=== PATIENT | female | born 1985 | race Caucasian/White ===

== ENCOUNTER 2022-03-13 15:58 | Emergency (ER) | payer OTHER ==
[~2022-03-13] VITALS: Ht 157.5 cm; Wt 72.1 kg
[2022-03-13 16:07] VITALS: BP 128/59
[2022-03-13 16:10] VITALS: BP 128/59
--- NOTE | 2022-03-13 16:10 | NUR ---
36/F WALKED IN C/O FLANK PAIN RADIATING TO ABD ONSET THIS MORNING. DENIES NVD. STATES DX KIDNEY STONE FROM PCP OFFICE 2WKS AGO. DENIES ANY STONE PASSING THROUGH URINE. URINE COLLECTED PMH: FATTY LIVER, SINUS JERILYN NKA
[2022-03-13] MEDS ORDERED: NACL 0.9% 1,000 ML IV SCH (16:30)
[2022-03-13] MEDS ORDERED: KETOROLAC 30 MG/ML VIAL IVP ONE (16:30)
[2022-03-13] MEDS ORDERED: ONDANSETRON 4 MG/2 ML VIAL IVP ONE (16:30)
--- NOTE | 2022-03-13 16:34 | NUR ---
PT REFUSING IV INSERTION AND MEDICATION, STATING SHE WOULD LIKE TO WAIT FOR CT IMAGING RESULT TO BE BACK. ERMD AWARE.
[2022-03-13] MEDS ORDERED: IBUPROFEN 600 MG TAB PO ONE (16:35)
--- NOTE | 2022-03-13 16:42 | NUR ---
BLOOD DRAWN BY TESTER ELECTRONIC SCALE
[2022-03-13 16:50] LABS: BASOPHILS % (AUTO) 0.4 % (0.0-2.0); EOSINOPHILS % (AUTO) 0.4 % (0.0-4.0); HEMATOCRIT 38.4 % (36-48); HEMOGLOBIN 13.5 g/dL (12.0-16.0); LYMPHOCYTES # (AUTO) 1.9 K/uL (2.5-16.5); LYMPHOCYTES % (AUTO) 24.2 % (20.5-51.1); MEAN CORPUSCULAR HEMOGLOBIN 31 pg (27-31); MEAN CORPUSCULAR HGB CONC 35 g/dL (33-37); MEAN CORPUSCULAR VOLUME 88.5 fL (80-94); MONOCYTES # (AUTO) 0.6 K/uL (0.8-1.0); MONOCYTES % (AUTO) 8.2 % (1.7-9.3); NEUTROPHILS # (AUTO) 5.1 K/uL (1.8-7.7); NEUTROPHILS % (AUTO) 66.8 % (42.2-75.2); PLATELET COUNT (AUTO) 311 K/uL (140-450); RED BLOOD CELL COUNT(AUTO) 4.34 MIL/uL (4.20-5.40); RED CELL DISTRIBUTION WIDTH 12.1 % (11.6-13.7); WHITE BLOOD COUNT (AUTO) 7.7 K/uL (4.8-10.8)
[2022-03-13 16:53] LABS: APPEARANCE,URINE CLOUDY (CLEAR); BILIRUBIN,URINE NEGATIVE (NEGATIVE); BLOOD, URINE TRACE-I (NEGATIVE); COLOR,URINE AMBER (YELLOW); LEUKOCYTE ESTERASE ,URINE NEGATIVE (NEGATIVE); NITRITE, URINE NEGATIVE (NEGATIVE); UGLUCOSE NEGATIVE (NEGATIVE)
--- NOTE | 2022-03-13 16:58 | NUR ---
PT WENT TO CT
[2022-03-13 17:04] LABS: ALBUMIN 4.7 g/dL (3.4-5.0); ANION GAP 16.1 (8-16); CREATININE 0.9 mg/dL (0.6-1.3); POTASSIUM 3.1 mmol/L (3.5-5.1); TOTAL BILIRUBIN 1.1 mg/dL (0.0-1.0)
[2022-03-13 17:07] LABS: OTHER CASTS, URINE None Seen /LPF (None Seen); RBC,URINE 0-5 /HPF (0-5); WBC,URINE 0-5 /HPF (0-5)
[2022-03-13] MEDS ORDERED: IBUP-2213 PO (17:32)
[2022-03-13] MEDS ORDERED: ONDA8TAB87 PO (17:32)
--- NOTE | 2022-03-13 17:35 | NUR ---
Patient discharged with v/s stable. Written and verbal after care instructions given and explained. Patient verbalized understanding. Ambulatory with steady gait. All questions addressed prior to discharge. Advised to follow up with PMD.
== END 2022-03-13 17:35 | disposition home or self-care (01) ==
LOC: MED 15:58
DX: R10.9 Unspecified abdominal pain (principal); Z90.49 Acquired absence of other specified parts of digestive tract
CPT/HCPCS: 36415; 80053; 81001; 81025; 83690; 85025; 99284

== ENCOUNTER 2022-03-19 19:33 | Emergency (ER) | payer OTHER ==
[~2022-03-19] VITALS: Ht 157.5 cm; Wt 72.6 kg
[~2022-03-19 19:33] MED LIST: IBUP-2213 PO; ONDA8TAB87 PO
[2022-03-19 19:35] VITALS: BP 122/38
--- NOTE | 2022-03-19 21:26 | NUR ---
Called - no show in lobby or outside.
--- NOTE | 2022-03-19 22:03 | NUR ---
PATIENT LEFT WITHOUT BEING SEEN BY DR. Aranda. NO FURTHER CARE PROVIDED FOR PATIENT.
--- NOTE | 2022-03-19 22:03 | NUR ---
Called second time- no show in lobby and outside.
== END 2022-03-19 22:03 | disposition left against medical advice (07) ==
LOC: MED 19:33
DX: F41.9 Anxiety disorder, unspecified (principal); Z53.21 Procedure and treatment not carried out due to patient leaving prior to being seen by health care provider

== ENCOUNTER 2022-03-23 11:43 | Emergency (ER) | payer SELFPAY ==
[~2022-03-23] VITALS: Ht 157.5 cm; Wt 70.8 kg
[2022-03-23 11:47] VITALS: BP 124/75
--- NOTE | 2022-03-23 12:10 | NUR ---
36 YO FEMALE BIB SELF CO CHEST PAIN AND TINGLING/BURNING SENSATION IN LEFT ARM. PT IS REFUSING TO ANSWER QUESTIONS. PMH: UNSPECIFIED ARRHYTHMIA NKA
--- NOTE | 2022-03-23 12:12 | NUR ---
ROSELIA MALDONADO AT BEDSIDE FOR EVAL
[2022-03-23] MEDS ORDERED: FAMOTIDINE 20 MG TAB PO ONE ×2 (12:20→14:10)
[2022-03-23] MEDS ORDERED: FAMOTIDINE 20 MG/2 ML VIAL IVP ONE (12:20)
[2022-03-23] MEDS ORDERED: KETOROLAC 30 MG/ML VIAL IVP ONE (12:20)
[2022-03-23] MEDS ORDERED: NACL 0.9% 1,000 ML IV ONE (12:20)
[2022-03-23] MEDS ORDERED: ONDANSETRON 4 MG ODT PO ONE (12:20)
[2022-03-23] MEDS ORDERED: ONDANSETRON 4 MG/2 ML VIAL IVP ONE (12:20)
[2022-03-23] MEDS ORDERED: KETOROLAC 30 MG/ML VIAL IM ONE (12:20)
--- NOTE | 2022-03-23 12:30 | NUR ---
PT REFUSING TO ANSWER ANY OF RN'S QUESTIONS, PT REFUSING TO GIVE URINE
--- NOTE | 2022-03-23 13:01 | NUR ---
PT REFUSED IV, PT MADE AWARE THAT IV MEDICATIONS ORDERED CANNOT BE GIVEN.
[2022-03-23] MEDS ORDERED: ACETAMINOPHEN 325 MG TAB PO ONE (13:05)
--- NOTE | 2022-03-23 13:17 | NUR ---
1302 PT REFUSING URINE SAMPLE
--- NOTE | 2022-03-23 13:17 | NUR ---
PT REFUSING BLOOD WORK
[2022-03-23 13:59] LABS: BASOPHILS % (AUTO) 0.6 % (0.0-2.0); EOSINOPHILS % (AUTO) 0.1 % (0.0-4.0); HEMATOCRIT 37.7 % (36-48); LYMPHOCYTES # (AUTO) 1.4 K/uL (2.5-16.5); LYMPHOCYTES % (AUTO) 22.2 % (20.5-51.1); MEAN CORPUSCULAR HEMOGLOBIN 31 pg (27-31); MEAN CORPUSCULAR HGB CONC 35 g/dL (33-37); MONOCYTES # (AUTO) 0.5 K/uL (0.8-1.0); MONOCYTES % (AUTO) 7.2 % (1.7-9.3); NEUTROPHILS # (AUTO) 4.4 K/uL (1.8-7.7); NEUTROPHILS % (AUTO) 69.9 % (42.2-75.2); PLATELET COUNT (AUTO) 309 K/uL (140-450); RED BLOOD CELL COUNT(AUTO) 4.19 MIL/uL (4.20-5.40); RED CELL DISTRIBUTION WIDTH 12.2 % (11.6-13.7); WHITE BLOOD COUNT (AUTO) 6.3 K/uL (4.8-10.8)
[2022-03-23 14:25] VITALS: BP 140/74
--- NOTE | 2022-03-23 14:30 | NUR ---
PT REFUSING LAB DRAW
[2022-03-23 14:31] LABS: ALBUMIN 4.4 g/dL (3.4-5.0); ASPARTATE AMINOTRANSFERASE 22 U/L (15-37); CARBON DIOXIDE 26.4 mmol/L (21-32); CHLORIDE 99 mmol/L (98-107); CREATININE 0.8 mg/dL (0.6-1.3); GFR ARICAN-AMERICAN 103 mL/min (>90); GLUCOSE 109 mg/dL (74-106); LIPASE 192 U/L (73-393); SODIUM SERUM 138 mmol/L (136-145); TOTAL BILIRUBIN 0.3 mg/dL (0.0-1.0); UREA NITROGEN, BLOOD 3 mg/dL (7-18)
[2022-03-23 14:35] LABS: POTASSIUM 2.4 mmol/L (3.5-5.1)
[2022-03-23] MEDS ORDERED: POTASSIUM CHLORIDE 10 MEQ TABER PO ONE (15:10)
--- NOTE | 2022-03-23 15:17 | NUR ---
PT REFUSING 30MEQ OF KDUREMILY MADE AWARE
[2022-03-23] MEDS ORDERED: POTA10TA70 PO (15:24)
--- NOTE | 2022-03-23 15:40 | NUR ---
PT REFUSED TO SIGN OUT AMA, STATING THAT THEY 'NEVER REFUSED ANY MEDS AND PROCEDURES" PT RIGHTS EXPLAINED.
--- NOTE | 2022-03-23 15:43 | NUR ---
PT ELOPED FROM FACILITY, SEEN WALKING OUT OF THE ER WITH STEADY GAIT
== END 2022-03-23 15:43 | disposition home or self-care (01) ==
LOC: MED 11:43
DX: E87.6 Hypokalemia (principal)
CPT/HCPCS: 36415; 71045; 80053; 83690; 84484; 85025; 93005; 99285; Q0092